=== PATIENT | male | born 1995 ===

== ENCOUNTER 2023-02-25 20:52 | Emergency (ER) | payer BC, MEDICAID ==
[2023-02-25] MEDS ORDERED: Ketorolac 60 MG/2 ML SDV IM ONE (21:22)
[2023-02-25] MEDS ORDERED: Take Home: Ketorolac 10 MG Tab, 4 Tab Pack PO ONE (21:23)
[2023-02-26 00:56] VITALS: BP 140/82; PULSE 89
== END 2023-02-25 21:50 | disposition home or self-care (01) ==
LOC: CC.ED 20:52
DX: G89.29 Other chronic pain (principal); M25.561 Pain in right knee; J45.909 Unspecified asthma, uncomplicated; Z88.5 Allergy status to narcotic agent; Z79.899 Other long term (current) drug therapy
CPT/HCPCS: 96372; 99283; A9270-GY; J1885